=== PATIENT | male | born 1940 | race Caucasian/White ===

== ENCOUNTER → 2024-04-16 10:27 | Outpatient (REF) | payer OTHER, SELFPAY | LOC: RAD 10:27 | PROVIDERS: ATTENDING PHYSICIAN Otolaryngology; FAMILY PHYSICIAN Family Medicine | DX: H90.A21 Sensorineural hearing loss, unilateral, right ear, with restricted hearing on the contralateral side (principal) | CPT/HCPCS: 70030 ==

== ENCOUNTER → 2024-05-07 10:52 | Outpatient (REF) | payer OTHER, SELFPAY | LOC: MRI 3T 10:52 | PROVIDERS: ATTENDING PHYSICIAN Otolaryngology; FAMILY PHYSICIAN Family Medicine | DX: H90.A21 Sensorineural hearing loss, unilateral, right ear, with restricted hearing on the contralateral side (principal) | CPT/HCPCS: 70553; A9575 ==